=== PATIENT | female | born 1950 | race Caucasian/White ===

== ENCOUNTER 2023-11-24 10:59 | Inpatient (IN) | payer OTHER ==
[~2023-11-24] VITALS: Ht 162.6 cm; Wt 68.1 kg
[2023-11-24 12:16] LABS: Eosinophils # (auto) 0.1 10 ^3/uL (0-0.8); Monocytes # (auto) 0.6 10 ^3/uL (0-1.3); Neutrophils # (auto) 6.6 10 ^3/uL (1.6-8.6); White Blood Cell 9.2 10^3/uL (4.4-10.8)
[2023-11-24 12:20] LABS: Basophils # (auto) 0.1 10 ^3/uL (0-0.2); Basophils % (auto) 0.6 % (0.0-2.0); Eosinophils % (auto) 1.2 % (0.0-7.0); Hematocrit 39.2 % (36.0-46.0); Hemoglobin 13.2 g/dL (12.2-16.2); Lymphocytes # (auto) 1.8 10 ^3/uL (0.4-5.4); Lymphocytes % (auto) 19.5 % (10.0-50.0); Mean Corpuscular Hemoglobin 27.5 pg (28.0-32.0); Mean Corpuscular Hgb Conc. 33.6 g/dL (32.0-36.0); Mean Corpuscular Volume 81.6 fL (80.0-100.0); Monocytes % (auto) 6.8 % (0.0-12.0); Neutrophils % (auto) 71.9 % (37.0-80.0); Nucleated Red Blood Cells % 0.1 %; Red Cell Distribution Width 14.8 % (11.8-14.3)
[2023-11-24 12:52] LABS: Alanine Aminotransferase 11 U/L (7-40); Albumin 4.6 g/dL (3.2-4.8); Alkaline Phosphatase 110 U/L (46-116); Anion Gap 6 (5-15); Aspartate Aminotransferase 14 U/L (13-40); BUN/Creatinine Ratio 12.6 (10.0-20.0); Bilirubin, Total 0.4 mg/dL (0.2-1.0); Blood Urea Nitrogen 15 mg/dL (9-23); Calcium 9.9 mg/dL (8.5-10.1); Carbon Dioxide 27 mmol/L (20-30); Chloride 106 mmol/L (98-107); Glucose 113 mg/dL (74-106); Magnesium 1.7 mg/dL (1.6-2.6); Potassium 4.2 mmol/L (3.5-5.1); Sodium 139 mmol/L (136-145); Total Protein 7.7 g/dL (5.7-8.2)
[2023-11-24] MEDS: ASPirin 325 MG TAB PO ONE (13:57)
[2023-11-24] MEDS: NITROGLYCERIN 0.4 MG SL TAB SL ONE (13:58)
[2023-11-24] MEDS ORDERED: MORPHINE SULFATE INJ 2 MG/ml SYRG IV PRN (16:15)
[2023-11-24] MEDS ORDERED: NITROGLYCERIN 0.4 MG SL TAB SL PRN ×2 (16:15)
[2023-11-24] MEDS ORDERED: ONDANSETRON HCL 4 MG/2 ML VIAL IV PRN (16:15)
[2023-11-24] MEDS ORDERED: MORPHINE SULFATE 4 MG/ML SYR/VIAL IV PRN (16:15)
[2023-11-24 17:25] LABS: INR 1.09 (0.9-1.15); Prothrombin Time 11.5 sec (9.3-11.8)
[2023-11-24 18:42] VITALS: O2SAT 97
[2023-11-24] MEDS: LABETALOL HCL 5 MG/ML 4ML SYRINGE IV ONE (18:50)
[2023-11-24 19:30] VITALS: PULSE 77; RESP 18; O2SAT 96
[2023-11-24] MEDS: ATORVASTATIN 20 MG TAB PO SCH (22:09)
[2023-11-24] MEDS: METOPROLOL TARTRATE 25 MG TAB PO SCH (22:10)
[2023-11-25] VITALS (9 sets, daily range): BP systolic 96–163; BP diastolic 68–89; PULSE 59–119; RESP 16–22; TEMP 36.8; O2SAT 92–100
[2023-11-25] MEDS ORDERED: HYDR-4798 PO (01:43)
[2023-11-25] MEDS: ACETAMINOPHEN 325 MG TAB PO PRN (05:19)
[2023-11-25 05:51] LABS: Basophils # (auto) 0.1 10 ^3/uL (0-0.2); Eosinophils # (auto) 0.1 10 ^3/uL (0-0.8); Eosinophils % (auto) 1.4 % (0.0-7.0); Hematocrit 37.3 % (36.0-46.0); Hemoglobin 12.7 g/dL (12.2-16.2); Lymphocytes # (auto) 1.3 10 ^3/uL (0.4-5.4); Lymphocytes % (auto) 14.6 % (10.0-50.0); Mean Corpuscular Hemoglobin 27.7 pg (28.0-32.0); Mean Corpuscular Volume 81.5 fL (80.0-100.0); Monocytes # (auto) 0.6 10 ^3/uL (0-1.3); Monocytes % (auto) 6.5 % (0.0-12.0); Neutrophils # (auto) 6.8 10 ^3/uL (1.6-8.6); Neutrophils % (auto) 76.5 % (37.0-80.0); Red Blood Cells 4.58 10^6/uL (4.0-5.20); Red Cell Distribution Width 14.9 % (11.8-14.3); White Blood Cell 8.8 10^3/uL (4.4-10.8)
[2023-11-25 05:57] LABS: Albumin 4.4 g/dL (3.2-4.8); Alkaline Phosphatase 99 U/L (46-116); Anion Gap 5 (5-15); Aspartate Aminotransferase 13 U/L (13-40); BUN/Creatinine Ratio 12.6 (10.0-20.0); Bilirubin, Total 0.5 mg/dL (0.2-1.0); Blood Urea Nitrogen 13 mg/dL (9-23); Calcium 9.7 mg/dL (8.5-10.1); Carbon Dioxide 25 mmol/L (20-30); Chloride 107 mmol/L (98-107); Cholesterol 124 mg/dL (< 200); Glucose 93 mg/dL (74-106); HDL Cholesterol 37 mg/dL (40-59); LDL Cholesterol 64 mg/dL (< 100); Potassium 4.3 mmol/L (3.5-5.1); Sodium 137 mmol/L (136-145); Triglycerides 91 mg/dL (< 150)
[2023-11-25 05:58] LABS: Total Protein 7.6 g/dL (5.7-8.2)
[2023-11-25 06:22] LABS: Alanine Aminotransferase 9 U/L (7-40)
[2023-11-25] MEDS: DOCUSATE SOD 100 MG CAP PO SCH (08:03)
[2023-11-25] MEDS: ASPirin 81 mg TAB PO SCH (08:05)
[2023-11-25] MEDS ORDERED: PANT40TA2 PO (15:18)
[2023-11-25] MEDS: PANTOPRAZOLE 40 MG TAB PO SCH (18:58)
[2023-11-25] MEDS: AMIODARONE HCL 200 MG TAB PO SCH (21:21)
[2023-11-25] MEDS: APIXABAN 5 MG TAB PO SCH (21:22)
[2023-11-26] VITALS (7 sets, daily range): BP systolic 118–152; BP diastolic 77–95; PULSE 69–92; RESP 16–20; TEMP 97.7–98; O2SAT 92–99
[2023-11-26] MEDS ORDERED: APIX5TAB PO (18:26)
[2023-11-26] MEDS ORDERED: MET25T PO (18:26)
[2023-11-26] MEDS ORDERED: AMIO200T13 PO (18:26)
[2023-11-26] MEDS ORDERED: ATOR20TA50 PO (18:26)
== END 2023-11-26 18:50 | disposition home or self-care (01) | DRG 384 ==
LOC: ER 10:59 → TELE 16:09 → TELE-WESTW 21:27
PROVIDERS: ADMIT Nurse Practitioner Family; ATTEND Internal Medicine
DX: K27.9 Peptic ulcer, site unspecified, unspecified as acute or chronic, without hemorrhage or perforation (principal); K21.9 Gastro-esophageal reflux disease without esophagitis; E78.5 Hyperlipidemia, unspecified; G89.4 Chronic pain syndrome; I48.0 Paroxysmal atrial fibrillation; I11.0 Hypertensive heart disease with heart failure; I50.9 Heart failure, unspecified; K22.4 Dyskinesia of esophagus
CPT/HCPCS: 36415; 71045; 74176; 80053; 80061; 83690; 83735; 83880; 84484; 85025; 85610; 93005; 93306; G0378; J3490